=== PATIENT | female | born 1980 | race Caucasian/White ===

== ENCOUNTER 2017-02-07 12:56 | Emergency (ER) | payer MEDICARE, MEDICAID ==
[2017-02-07 13:09] VITALS: BP 104/77
--- NOTE | 2017-02-07 15:05 | EDM.PDOC ---
[id number]: [facility] Time Seen by Provider: 02/07/17 13:20 Source of Information: Reports: Patient, EMS History Limitations: Reports: No Limitations - History of Present Illness INITIAL COMMENTS - FREE TEXT/NARRATIVE: 36-year-old female sent in from her fdc because of decreased activity, intermittent lethargy, decreased oral intake and vaginal bleeding. She had an [employer] consult several days ago and a good workup in the emergency room in [place] within the last 48 hours. She had no treatment in the ambulance and on arrival she is alert, answering questions appropriately. She is asking us to adjust her pillow in her bed for comfort and complaining about knee pain. She denies abdominal pain. She was just started on an antibiotic for a UTI yesterday. Onset: Unknown/Unsure Severity: Mild Associated Symptoms: Reports: Malaise, Weakness, Other (Decreased appetite). Denies: Headaches - Related Data Allergies Allergy/AdvReac Type Severity Reaction Status Date / Time latex Allergy Cannot Verified 02/07/17 13:18 Remember Sulfa (Sulfonamide Allergy Cannot Verified 02/07/17 13:18 Antibiotics) Remember sulfamethoxazole Allergy Cannot Verified 02/07/17 13:18 [From Bactrim] Remember trimethoprim [From Bactrim] Allergy Cannot Verified 02/07/17 13:18 Remember Home Meds: Home Meds Aspirin [Halfprin] 81 mg PO DAILY 02/07/17 [History] Bisacodyl 2 tab PO ASDIRECTED 02/07/17 [History] Cefuroxime [Ceftin] 250 mg PO BID 02/07/17 [History] Cholecalciferol (Vitamin D3) [Vitamin D3] 2,000 units PO DAILY 02/07/17 [History ] DULoxetine [Cymbalta] 90 mg PO DAILY 02/07/17 [History] Docusate Sodium [Colace] 400 mg PO DAILY 02/07/17 [History] Insulin Aspart [NovoLOG] 1 dose SUBCUT TID 02/07/17 [History] Insulin Glargine,Hum.Rec.Anlog [Lantus Solostar] 13 units SUBCUT DAILY 02/07/17 [History] Lisinopril 2.5 mg PO DAILY 02/07/17 [History] Metoprolol Tartrate 25 mg PO DAILY 02/07/17 [History] Multivitamin [Multi-Vitamin Daily] 1 tab PO DAILY 02/07/17 [History] Sennosides 2 tab PO DAILY 02/07/17 [History] Simvastatin [Zocor] 20 mg PO DAILY 02/07/17 [History] Warfarin [Coumadin] 5 mg PO DAILY 02/07/17 [History] Past Medical History HEENT History: Reports: Other (See Below) Other HEENT History: Nystagmus Cardiovascular History: Reports: Blood Clots/VTE/DVT, Heart Failure, Pacemaker, Other (See Below) Other Cardiovascular History: atrial flutter, SV arrhythmia, defibrillator, cardiomyopathy, hyperlipidemia Genitourinary History: Reports: Urinary Incontinence [employer] History: Reports: Other (See Below) Other OB/BYN History: vaginal atrophy Musculoskeletal History: Reports: Muscular Dystrophy, Other (See Below) Other Musculoskeletal History: Friedrichs ataxia Neurological History: Reports: CVA, Seizure, TIA, Other (See Below) Other Neuro History: Friedrichs ataxia, muscular dystrophy, expressive aphagia Psychiatric History: Reports: Anxiety Endocrine/Metabolic History: Reports: Diabetes, Type II, Obesity/BMI 30+ - Infectious Disease History Infectious Disease History: Reports: Other (See Below) Other Infectious Disease History: unknown - Past Surgical History Cardiovascular Surgical History: Reports: Other (See Below) Other Cardiovascular Surgeries/Procedures: defibrillator, ablate AV node function GI Surgical History: Reports: Other (See Below) Other GI Surgeries/Procedures: DEE DEE/BSO Female Surgical History: Reports: Hysterectomy, Salpingo-Oophorectomy Social & Family History - Tobacco Use Smoking Status *Q: Unknown Ever Smoked Second Hand Smoke Exposure: No - Caffeine Use Caffeine Use: Reports: None - Recreational Drug Use Recreational Drug Use: No ED ROS GENERAL - Review of Systems Review Of Systems: See Below Constitutional: Reports: Malaise. Denies: Fever, Chills Respiratory: Denies: Shortness of Breath Cardiovascular: Denies: Chest Pain GI/Abdominal: Denies: Abdominal Pain Skin: Reports: No Symptoms Neurological: Reports: Other (Mental status changes). Denies: Headache ED EXAM, GENERAL - Physical Exam Exam: See Below Exam Limited By: No Limitations General Appearance: Alert, No Apparent Distress Respiratory/Chest: No Respiratory Distress, Lungs Clear Cardiovascular: Regular Rate, Rhythm GI/Abdominal: Soft, Other (She has several firm nodular mass like findings in the abdomen which could be chronic constipation. They're nontender.) (Female) Exam: Vaginal Bleeding (A small amount of blood in vagina is present ) Rectal (Female) Exam: Normal Exam (She has a large amount of soft stool in the rectum but no pain, bleeding, or impaction) Course - Vital Signs Last Recorded V/S: Last Vital Signs Temp 97.2 F 02/07/17 13:33 Pulse 71 02/07/17 13:33 Resp 18 02/07/17 13:33 BP 104/77 02/07/17 13:33 Pulse Ox 96 02/07/17 13:33 - Orders/Labs/Meds Labs: Laboratory Tests 02/07/17 02/07/17 Range/Units 15:05 15:05 WBC 7.8 (4.5-11.0) K/uL RBC 4.98 (3.30-5.50) M/uL Hgb 15.0 (12.0-15.0) g/dL Hct 46.0 (36.0-48.0) % MCV 92 (80-98) fL MCH 30 (27-31) pg MCHC 33 (32-36) % Plt Count 392 (150-400) K/uL Neut % (Auto) 77 H (36-66) % Lymph % (Auto) 15 L (24-44) % [place] % (Auto) 5 (2-6) % Eos % (Auto) 1 L (2-4) % Baso % (Auto) 2 H (0-1) % Sodium 137 L (140-148) mmol/L Potassium 4.7 (3.6-5.2) mmol/L Chloride 101 (100-108) mmol/L Carbon Dioxide 29 (21-32) mmol/L Anion Gap 11.7 (5.0-14.0) mmol/L BUN 13 (7-18) mg/dL Creatinine 0.7 (0.6-1.0) mg/dL Est Cr Clr Drug Dosing 87.03 mL/min Estimated GFR (MDRD) > 60 (>60) Glucose 181 H (74-106) mg/dL Calcium 9.2 (8.5-10.1) mg/dL - Re-Assessments/Exams Free Text/Narrative Re-Assessment/Exam: 02/07/17 15:31 Medical record no some her [employer] consultation as well as the emergency room visit were reviewed. These findings and evaluations appear to be complete and fairly thorough. The patient is stable with normal vitals, alert, and has no additional findings at this time compared to the recent notes. A CBC and BMP were rechecked. 02/07/17 17:02 CBC was normal, BMP was reassuring. Prior to discharge her power of county attorney who knows her fairly well for the last 2 months arrived, visited with the patient and thought she looked baseline. Departure - Departure Time of Disposition: 16:16 Disposition: DC/Tfer to [facility] Condition: good Clinical Impression: UTI, Urinary tract infectious disease, Vagina bleeding - Discharge Information Instructions: Urinary Tract Infection, Adult, [id number] Referrals: PCP,None [Primary Care Provider] - Forms: ED Department Discharge Care Plan Goals: Continue his current medications including the antibiotics for her UTI. Recheck if worsening or concerns.
== END 2017-02-07 16:16 ==
LOC: JP.ED 12:56 → EDSEX 12:56 → JP.ED 16:16
DX: N39.0 Urinary tract infection, site not specified (principal); N93.9 Abnormal uterine and vaginal bleeding, unspecified; I50.9 Heart failure, unspecified; I42.9 Cardiomyopathy, unspecified; E78.5 Hyperlipidemia, unspecified; E11.9 Type 2 diabetes mellitus without complications; E66.9 Obesity, unspecified; Z68.30 Body mass index [BMI] 30.0-30.9, adult; Z86.718 Personal history of other venous thrombosis and embolism; Z86.73 Personal history of transient ischemic attack (TIA), and cerebral infarction without residual deficits; Z95.0 Presence of cardiac pacemaker; Z90.710 Acquired absence of both cervix and uterus; Z90.721 Acquired absence of ovaries, unilateral; Z98.890 Other specified postprocedural states; Z79.4 Long term (current) use of insulin; Z79.01 Long term (current) use of anticoagulants; Z79.82 Long term (current) use of aspirin; Z79.899 Other long term (current) drug therapy; Z88.1 Allergy status to other antibiotic agents; Z88.2 Allergy status to sulfonamides; Z91.040 Latex allergy status
CPT/HCPCS: 36415; 80048; 85025; 99282; 99284